=== PATIENT | female | born 1975 | race Caucasian/White ===

== ENCOUNTER 2021-07-08 21:51 | Emergency (ER) | payer OTHER ==
[2021-07-10] MEDS ORDERED: CLINDAMYCIN HC150 MG PO (23:17)
[2021-07-13] MEDS ORDERED: PROBIOTIC & AC1 EACH PO (00:48)
[2021-07-13] MEDS ORDERED: DOXYCYCLINE HY100 MG PO (00:48)
[2021-07-13] MEDS ORDERED: AMOX TR-K CLV1 EAC4 PO (00:48)
== END 2021-07-09 02:22 | disposition home or self-care (01) ==
LOC: ER1 21:51
DX: S51.851A Open bite of right forearm, initial encounter (principal); F17.290 Nicotine dependence, other tobacco product, uncomplicated; W54.0XXA Bitten by dog, initial encounter; Y92.009 Unspecified place in unspecified non-institutional (private) residence as the place of occurrence of the external cause
CPT/HCPCS: 73090; 90471; 90715; 96372; 99284; J0690

== ENCOUNTER → 2021-11-12 | Outpatient (CLI) | payer OTHER ==
[~2021-11-12] MED LIST: AMOX TR-K CLV1 EAC4 PO; CLINDAMYCIN HC150 MG PO; DOXYCYCLINE HY100 MG PO; PROBIOTIC & AC1 EACH PO
== END ==
LOC: HEART 5 11-06 15:00
DX: I95.9 Hypotension, unspecified (principal); R29.6 Repeated falls; R06.02 Shortness of breath
CPT/HCPCS: 93306

== ENCOUNTER → 2021-11-14 | Outpatient (CLI) | payer OTHER | LOC: KOH-I 11:50 | DX: M25.552 Pain in left hip (principal) | CPT/HCPCS: 73502 ==

== ENCOUNTER → 2021-12-25 | Outpatient (CLI) | payer OTHER | LOC: KOH-I 14:11 | DX: M47.26 Other spondylosis with radiculopathy, lumbar region (principal) | CPT/HCPCS: 72100 ==

== ENCOUNTER 2022-01-01 17:43 | Emergency (ER) | payer OTHER ==
[2022-01-01 18:40] LABS: RED BLOOD COUNT 4.13 M/UL (4.00-5.10); WHITE BLOOD COUNT 5.3 K/UL (4.5-11.0)
[2022-01-01 19:02] LABS: BUN/CREATININE RATIO 20 (0-10)
[2022-01-02] MEDS ORDERED: ZOFRAN ODT 4 MG4 MG PO (02:11)
[2022-01-02] MEDS ORDERED: BENTYL 20MG TAB20 MG PO (02:11)
== END 2022-01-02 02:22 | disposition home or self-care (01) ==
LOC: ER1 17:43
PROVIDERS: Student in an Organized Health Care Education/Training Program
DX: R10.11 Right upper quadrant pain (principal); R10.811 Right upper quadrant abdominal tenderness; R19.7 Diarrhea, unspecified; F17.290 Nicotine dependence, other tobacco product, uncomplicated
CPT/HCPCS: 80053; 81001; 83690; 84703; 85025; 99284; Q9967